=== PATIENT | female | born 1985 | race Caucasian/White ===

== ENCOUNTER 2020-01-03 17:44 | Emergency (ER) | payer OTHER ==
[~2020-01-03] VITALS: Ht 160 cm; Wt 99.8 kg
[~2020-01-03 17:44] MED LIST: FLONASE16 GM NS; LORATIDINE 10 M10 M1 PO; NOHOMEMEDICATIONS; NYSTATIN PO
[2020-01-03 18:31] LABS: ABSOLUTE EOSINOPHILS 0.1 thou/uL (0.0-0.7); ABSOLUTE LYMPHOCYTES 1.5 thou/uL (0.8-5.3); ABSOLUTE MONOCYTES 0.5 thou/uL (0.0-1.2); ABSOLUTE NEUTROPHILS 5.7 thou/uL (1.6-8.1); BASOPHILS 0.5 %; EOSINOPHILS 1.7 %; HEMATOCRIT 37.8 % (37.0-47.0); HEMOGLOBIN 13.1 gm/dL (12.0-15.0); LYMPHOCYTES 18.6 %; MCH 32.2 pg (26.0-34.0); MCHC 34.7 g/dL (28.0-37.0); MCV 92.9 fL (80.0-100.0); MONOCYTES 6.8 %; MPV 7.9 fl. (7.2-11.1); NUCLEATED RBCS 0 /100WBC; PLATELET COUNT* 255 thou/uL (150-400); POLYS 72.4 %; RBC 4.07 mil/uL (4.20-5.00); RDW-CV 12.6 % (10.5-14.5); WBC 7.8 thou/uL (4.0-11.0)
[2020-01-03 18:38] LABS: CALCIUM 8.6 mg/dL (8.5-10.1); CREATININE 0.9 mg/dL (0.6-1.3); POTASSIUM 4.2 mmol/L (3.5-5.1)
[2020-01-03 18:50] LABS: ALBUMIN 3.6 g/dL (3.4-5.0); MAGNESIUM 1.8 mg/dL (1.8-2.4); TOTAL BILIRUBIN 0.5 mg/dL (<0.1-1.0)
[2020-01-03 21:27] VITALS: BP 114/74
--- NOTE | 2020-01-04 09:40 | EKG ---
[place] [address] ELECTROCARDIOGRAM REPORT Name: YUDITH GARBER Room: [facility]#: [id number] Admission: 01/03/20 Attend Phys: Discharge: 01/03/20 Date of : 89 Date of Service: 01/03/20 175 Report #: [id number] THIS REPORT FOR: //name// [facility] ED Test Date: 2020-01-03 Test Time: 17:53:04 Pat Name: YUDITH GARBER Department: Room: Gender: [employer] Work[employer]: CCD : 1985 Requested By: Santhosh Diamond Order Number: [id number] MD: Robert Sol Measurements Intervals [place] Rate: 92 P: 44 MS: 122 QRS: 53 QRSD: 93 T: 9 QT: 341 QTc: 422 Interpretive Statements Sinus rhythm Baseline wander in lead(s) V2 No previous ECG available for comparison Electronically Signed On 01-04-2020 9:40:40 CDT by Robert Sol [email or web address] <ELECTRONICALLY SIGNED> By: Robert Sol MD, [facility] 01/04/20 0940 1753 52 Robert Sol MD, FAC /EPI
== END 2020-01-03 21:27 | disposition still patient (30) ==
LOC: M.ERS 17:44
PROVIDERS: Emergency Medicine Emergency Medical Services
DX: R07.89 Other chest pain (principal); K58.9 Irritable bowel syndrome, unspecified; Z20.828 Contact with and (suspected) exposure to other viral communicable diseases; Z88.2 Allergy status to sulfonamides

== ENCOUNTER 2020-12-26 22:26 | Emergency (ER) | payer OTHER ==
[~2020-12-26] VITALS: Ht 157.5 cm; Wt 86.2 kg
[2020-12-27 00:18] LABS: URINE BILIRUBIN NEGATIVE (Negative); URINE BLOOD 1+ (Negative); URINE CLARITY CLEAR; URINE COLOR YELLOW; URINE GLUCOSE-RANDOM NEGATIVE (Negative); URINE KETONES NEGATIVE (Negative); URINE LEUKOCYTES-REFLEX NEGATIVE (Negative); URINE NITRITE-REFLEX NEGATIVE (Negative); URINE PROTEIN NEGATIVE (Negative); URINE SPECIFIC GRAVITY 1.015 (1.005-1.030); URINE UROBILINOGEN 0.2 E.U./dl (0.2-1.0)
[2020-12-27] MEDS ORDERED: CLEOCIN HCL300 MG PO (01:14)
[2020-12-27 01:19] VITALS: BP 141/70
[2020-12-27 01:43] LABS: BACTERIA-REFLEX None Seen /HPF (None Seen); CASTS None Seen /LPF (None Seen); CRYSTALS None Seen /LPF (None Seen); SQUAMOUS 0-3 Few /LPF (0-3); URINE RBC 0-2 Rare /HPF (0-2); URINE WBC-REFLEX 0-5 Rare /HPF (0-5)
== END 2020-12-27 01:19 | disposition home or self-care (01) ==
LOC: M.ERS 22:26
PROVIDERS: Emergency Medicine
DX: T19.2XXA Foreign body in vulva and vagina, initial encounter (principal); K58.9 Irritable bowel syndrome, unspecified; X58.XXXA Exposure to other specified factors, initial encounter; Y93.89 Activity, other specified; Y92.89 Other specified places as the place of occurrence of the external cause; Y99.8 Other external cause status